=== PATIENT | female | born 2000 | race Caucasian/White ===

== ENCOUNTER 2019-11-28 13:00 | Emergency (ER) | payer OTHER | END 2019-11-28 15:00 | disposition home or self-care (01) | LOC: M ED 13:00 | DX: O9A.212 Injury, poisoning and certain other consequences of external causes complicating pregnancy, second trimester (principal); S99.912A Unspecified injury of left ankle, initial encounter; X50.0XXA Overexertion from strenuous movement or load, initial encounter; Y93.K1 Activity, walking an animal; Y92.9 Unspecified place or not applicable; Z3A.20 20 weeks gestation of pregnancy; Z79.899 Other long term (current) drug therapy ==

== ENCOUNTER 2020-04-21 12:37 | Inpatient (IN) | payer OTHER ==
[2020-04-21] VITALS (31 sets, daily range): BP systolic 99–145; BP diastolic 52–87
[~2020-04-21] VITALS: Ht 167.6 cm; Wt 85.0 kg
[2020-04-21] MEDS ORDERED: TUMS500C PO (12:59)
[2020-04-21] MEDS ORDERED: PRENTAB9 PO (12:59)
[2020-04-21] MEDS ORDERED: LR 1,000 ML IV SCH (13:48)
[2020-04-21] MEDS ORDERED: LACTATED RINGER'S 1000 ML IV STA (13:48)
[2020-04-21] MEDS ORDERED: OXYTOCIN DRIP 30 UNITS in IV 1 EA IV SCH ×2 (14:00→20:24)
--- NOTE | 2020-04-21 14:16 | HPEPDOC ---
Obstetrical History & Physical General Date of Admission Apr 21, 2020 at 12:37 History of Present Illness 20 yo G1@ 40w2D who is admitted for induction of labor at full term. she reports reg movements, denies painfull contractions, VB, LOF. she has no concerns. 1. Anemia 2.Constipation 3. excessive weight gain in #45lb Information Provided By: Patient Age: 19 Care Care: Good Care Dating Final EDC: Apr 19, 2020 Final EDC for Daily Update: Apr 19, 2020 Final EDC by: LMP LMP: Jul 14, 2019 1st Trimester Date: May 07, 2019 EGA at Admission: 40 (40+2) Antepartum Course Diagnos(e)s 1. Anemia 2. Constipation Height (inches): 66 Pre- weight (lbs.): 140 Admission Weight (lbs.): 185 Change in Weight (lbs.): 45 Past Medical History Past Obstetrical History : Past Obstetrical History: Primgravida [employer] History: No pertinent history Past Medical History Medical History Denies Surgical History: Denies/None Family History Significant Family History: No pertinent family hx Social History Marital Status: Family situation: Spouse/partner home * Smoker: non-smoker Alcohol: Denies Drugs: denies Abuse Violence Screening Have you been hit/kicked/slapp: No Have you been sexually assault: No Imunizations Tdap status: current Influenza Status: needs Allergies Coded Allergies: No Known Allergies (Unverified , 04/21/20) Medications Scheduled No.137/Iron/Folic Acd ( Vitamin Tablet) 1 Each Tablet, 1 TAB PO DAILY Miscellaneous Medications Calcium Carbonate (Tums) 200 Mg Tab.chew, 500 MG PO Physical Examination Physical Examination GENERAL: Alert and oriented times three. BREAST: . ABDOMEN: Gravid and non-tender to touch. FETUS: Is vertex (VTX) by sterile vaginal examination (SVE) HEART RATE: Regular rate and rhythm. LUNGS: Clear to auscultation (CTA). EXTREMITIES: No edema. No clonus. SVE: 3/50/-2, C[place] PLACED 80/80, EFW 3500g Laboratory Data 24H LABS Laboratory Tests 2 04/21/20 13:35: Serology Scanned Report Hepatitis B Testing Urine Culture: No Growth Pertinent Laboratoy Data Blood Type: O+ RBC Antibody Screen: Negative HIV: Negative Hepatitis B: Negative Hepatitis C: Unknown Rapid Plasma Reagin: Nonreactive Rubella: Immune Varicella: Immune Chlamydia/Gonorrhea: Negative Group B Streptococcus: Negative Quad Screen Test: Negative Cystic Fibrosis: Negative Anatomy Ultrasound Ultrasound Date: Jan 27, 2020 Placenta Location: Posterior Normal Anatomy: Yes Steroid Therapy Steroid Therapy: No Vaginal Examination Dilation: 3 cm Effacement: 50% Station: -2 Cervical Consistency: Medium Cervical Position: Posterior Presentation: Cephalic presentation Assessment Heart Rate (FHR): 150 Variability: Moderate Accelerations: Positive Decelerations: None Tocometer Contractions: No Assessment/Plan Assessment 20 yo G1@ 40w2D who is admitted for induction of labor at full term. she reports reg movements, denies painfull contractions, VB, LOF. she has no concerns. GBS neg, RH pos ( Opos). EFW 3500g. 1. Anemia 2.Constipation 3. excessive weight gain in #45lb Plan Admit and orient. [employer]oples[employer] Hr Developer and consent. Diet: clear Group B Streptococcus (GBS) negative. Labs and intravenous (IV) per unit protocol. Counseled on Pitocin and induction of labor (IOL). Lactated Ringers (LR): Bolus 1000 mL, then at 125 mL/hr. Anticipate [normal spontaneous delivery . C-S as appropriate. NEIL GARCÍA MD Apr 21, 2020 14:16
[2020-04-21 14:40] LABS: HEMATOCRIT 38.5 % (36.0-47.0); HEMOGLOBIN 12.6 g/dl (12.0-15.5); MEAN CORPUSCULAR HEMOGLOBIN 28.9 pg (27.0-33.0); MEAN CORPUSCULAR HGB CONC 32.7 g/dl (32.0-36.5); MEAN CORPUSCULAR VOLUME 88.3 fl (80.0-96.0); PLATELET COUNT, AUTOMATED 265 10^3/uL (150-450); RED BLOOD COUNT 4.36 10^6/uL (4.00-5.40); WHITE BLOOD COUNT 10.6 10^3/uL (4.0-10.0)
[2020-04-21] MEDS ORDERED: FENTANYL 2MCG/ML ROPIVACAINE 0.2% IN 0.9% NACL 100ML IVBAG As Ordered ONE (15:39)
[2020-04-21] MEDS ORDERED: ONDANSETRON 4MG/2ML VIAL IV PRN (17:30)
[2020-04-21] MEDS ORDERED: REFRIGERATOR IV KEYS XX PRN (17:30)
[2020-04-21] MEDS ORDERED: ePHEDrine SULFATE 25 MG/5 ML(5MG/ML) SYRINGE IV PRN (17:30)
[2020-04-21] MEDS ORDERED: ACETAMINOPHEN TAB 650MG DOSE (2X325MG) PO PRN (17:30)
[2020-04-21] MEDS ORDERED: diphenhydrAMINE 50MG/ML VIAL (J1200) IV PRN (17:30)
[2020-04-21] MEDS ORDERED: FENTANYL/ROPIVACAINE/NACL BAG 100 ML EPIDURAL SCH (17:30)
[2020-04-21] MEDS ORDERED: NALOXONE INJ 0.4MG/1ML VIAL (J2310 PER 1MG) IV PRN (17:30)
[2020-04-21] MEDS ORDERED: LACTATED RINGER'S 1000 ML IV PRN (17:30)
[2020-04-21] MEDS ORDERED: EPIDURAL COMMENT XX SCH (17:30)
[2020-04-21] MEDS ORDERED: EPIDURAL/PCA KEYS XX PRN (17:30)
--- NOTE | 2020-04-21 18:41 | IPNPDOC ---
Obstetrical Progress Note Date of Service Apr 21, 2020 Subjective To room for assessment. patient has epidural in place and she is feeling some vaginal pressure. FHT: 130, mod liz,+accels, -decels---cat I tracing SVE: /-1, MIRZA REMOVED, AROM with clear fluids [place]: 3-07/24 pit @10 A/P Latent labor. cat I tracing. continue pitocin per L&D protocol. Anticipate Objective Vital Signs Date Time Temp Pulse Resp B/P (MAP) Pulse Ox O2 Delivery O2 Flow Rate FiO2 04/21/20 17:04 84 118/73 (88) 04/21/20 15:44 98.8 04/21/20 12:51 16 NEIL GARCÍA MD Apr 21, 2020 18:28
[2020-04-21 20:30] LABS: CORD GAS ABE V -9.5; CORD GAS HCO3 V 20.5 MEQ/L; CORD GAS O2 SAT V 60.6 %; CORD GAS PCO2 V 59.4 mmHg; CORD GAS PH V 7.156 UNITS; CORD GAS PO2 V 29.6 mmHg; CORD GAS SBC V 16.3 MEQ/L; CORD GAS TCO2 V 22.3 MEQ/L
[2020-04-21] MEDS ORDERED: BENZOCAINE 20% HEMORRHOIDAL OINTMENT 28GM TUBE TOP PRN (20:30)
[2020-04-21] MEDS ORDERED: MOM 30ML SUSPENSION UDC PO PRN (20:30)
[2020-04-21] MEDS ORDERED: ANUSOL HC CREAM 30GM TOP PRN (20:30)
[2020-04-21] MEDS ORDERED: DOCUSATE SODIUM 100MG CAPSULE PO PRN (20:30)
--- NOTE | 2020-04-21 20:37 | DNPDOC ---
[facility] Delivery Note Delivery Note DATE OF DELIVERY: 04/21/2020 PREDELIVERY DIAGNOSIS: 40-1/7 weeks' gestation and labor. POST DELIVERY DIAGNOSIS: Delivered. PROCEDURE: Spontaneous vaginal delivery GLOBAL VP CREATIVE + CONTENT MARKETING: Dr.Diane García ANESTHESIA: epidural ESTIMATED BLOOD LOSS: 100 mL. FINDINGS: 7 pound 10 ounce( 3450g) male , Score 7/8, nuchal cord times 2. DELIVERY SUMMARY: Patient is a 20 year-old 1 now para 1 who was admitted to labor and delivery for Induction of labor. Patient progressed to C/C/+2 and with good maternal effort delivered a viable . The infants head delivered OA. The head was allowed to spontaneously restitute KEVIN. loose nuchal cord x2, noted and delivered through. Right anterior shoulder delivered with gentle downward traction followed by posterior shoulder and corpus without difficulty. Normal 3-vessel cord clamped x 2 and cut by FOB after 1 min of delayed cord clamping. Spontaneous cry noted. placed on maternal abdomen for [id number]. Cord blood obtained. Placenta delivered spontaneously and inspection of the placenta demonstrated that it was intact. The cord insertion appeared normal. The uterus was cleared of all clots and debris. Fundal massage until firm.30 units of Pitocin administered per protocol and the patient required no additional uterotonics. Inspection of cervix, perineum, and vaginal wall revealed small periurethral abrasion and a hymenal ring disruption, both of which repaired with 3-0 vicryl. good hemostasis obtained. Repeat uterine examination noted uterine tone to be adequate and firm. Mom and infant stayed in L&D in hemodynamic stable condition upon my departure. NEIL GARCÍA MD Apr 21, 2020 20:37
[2020-04-22 06:00] VITALS: BP 105/54
--- NOTE | 2020-04-22 06:39 | IPNPDOC ---
Progress Note Date of Service: Apr 22, 2020 Day#: 1 Progress Note SUBJECT: Roxie is a 20-year-old 1 now Para 1 status post uncomplicated spontaneous vaginal delivery at 40-1/7 weeks of a 7 pound 10 ounce( 3450g) male infant, Score 7/8, nuchal cord times 2, with post va ginal laceration and repair, doing well day # 1. She has been ambulating, voiding spontaneously without issue and tolerating regular diet. Breast feeding without issue. Reports lochia isclike a normal period. Patient is ambulating well. [Reports some cramping with . Denies any pain. Voiding and stooling without difficulty]. OBJECTIVE: VITAL SIGNS: Within normal limits, afebrile. Alert and oriented times three. normal work of breathing. Heart rate: Regular rate and rhythm Abdomen: Fundus firm at U-2. Soft, NTTP. ASSESSMENT: Roxie is a 20-year-old 1 now Para 1 status post uncomplicated spontaneous vaginal delivery at 40-1/7 weeks of a 7 pound 10 ounce( 3450g) male , Score 7/8, nuchal cord times 2, with post vaginal laceration and repair, doing well day # 1. Vitals within normal limits, afebrile, hemodynamically stable with no evidence of infection. PLAN: 1. Discharge to home tomorrow 2. Tylenol and Motrin for pain. 3. Encourage breast feeding and ambulation. 4. mIREN IUD for contraception 5. Routine PP visit in 6 weeks in clinic. 6. Discussed return precautions at length. VS, I&O, 24H, Derek Vital Signs/I&O Vital Signs Date Time Temp Pulse Resp B/P (MAP) Pulse Ox O2 Delivery O2 Flow Rate FiO2 04/21/20 21:45 98.3 75 16 131/70 (90) 04/21/20 21:08 Room Air I&O- Last 24 Hours up to 6 AM 04/22/20 06:00 Intake Total 1000 ml Output Total 1100 ml Balance -100 ml Laboratory Data 24H LABS Laboratory Tests 2 04/21/20 13:35: Serology Scanned Report Hepatitis B Testing 04/21/20 13:48: Nucleated Red Blood Cells % (auto) 0.0, Syphilis Serology NONREACTIVE, Hepatitis B Surface Antigen NEGATIVEL 1/6/21 20:10: Cord Venous Blood pH 7.156, Cord Venous Blood PCO2 59.4, Cord Venous Blood PO2 29.6, Cord Venous Blood HCO3 20.5, Cord Venous Blood Total CO2 22.3, Cord Venous Base Excess (Actual) -9.5, Cord Venous Base Excess (Standard) 16.3, Cord Venous Blood Oxygen Saturation 60.6 CBC/BMP Laboratory Tests 04/21/20 13:48 NEIL GARCÍA MD Apr 22, 2020 06:39
[2020-04-22] MEDS: ACETAMINOPHEN 500 MG TAB PO PRN ×2 (07:59→16:31)
[2020-04-22] MEDS: PRENATAL VITAMINS CHEWABLE TABLET PO SCH (07:59)
[2020-04-22 18:00] VITALS: BP 132/66
[2020-04-22] MEDS: IBUPROFEN 800 MG TAB PO PRN (20:23)
[2020-04-23 06:00] VITALS: BP 118/58
[2020-04-23] MEDS ORDERED: ACET-683 PO (08:06)
[2020-04-23] MEDS ORDERED: IBUP80TA PO (08:06)
--- NOTE | 2020-04-23 08:08 | DS.PDOC ---
Discharge Summary General Date of Admission Apr 21, 2020 at 12:37 Date of Discharge Apr 23, 2020 Discharge Summary HOSPITAL COURSE: Ms. Rosas is a 20 yo G1 now P1 who underwent an uncomplicated on 21Apr2020 after being admitted for an IOL for social reasons. Her course has been unremarkable. On her day of discharge she met all appropriate discharge criteria. She was ambulating, voiding, tolerating a regular diet, and had minimal lochia. DISCHARGE MEDICATIONS: Please see below. ALLERGIES: Please see below. PHYSICAL EXAMINATION ON DISCHARGE: VITAL SIGNS: Please see below. GENERAL: AAOX3, NAD, pleasant and conversant ABDOMINAL EXAMINATION: Fundus firm at U-2. No fundal tenderness EXTREMITIES: No edema PSYCHIATRIC EXAMINATION: Affect appropriate LABORATORY DATA: Please see below. ACTIVITY: Pelvic rest for 6 weeks DIET: Regular diet DISCHARGE PLAN: Discharge home DISPOSITION: Discharge home on 23Apr2020. DISCHARGE INSTRUCTIONS: 1. Pelvic rest for 6 weeks ITEMS TO FOLLOWUP ON ON OUTPATIENT: 1. appointment in 6-8 weeks DISCHARGE CONDITION: Stable. TIME SPENT ON DISCHARGE: Greater than 20 minutes. Vital Signs/I&Os Vital Signs Date Time Temp Pulse Resp B/P (MAP) Pulse Ox O2 Delivery O2 Flow Rate FiO2 04/22/20 18:00 98.8 78 17 132/66 (88) 98 Room Air Discharge Medications Scheduled PRN Acetaminophen (Acetaminophen) 500 Mg Tablet, 1,000 MG PO Q6HP PRN for PAIN LEVEL 6-10 Ibuprofen (Ibuprofen) 800 Mg Tablet, 800 MG PO Q8HP PRN for PAIN LEVEL 6-10 Allergies Coded Allergies: No Known Allergies (Unverified , 04/21/20) MARLA MEZA DO Apr 23, 2020 08:08
[2020-04-23] MEDS: IBUPROFEN 800 MG TAB PO PRN (09:48)
[2020-04-23] MEDS: PRENATAL VITAMINS CHEWABLE TABLET PO SCH (09:48)
--- NOTE | 2020-04-24 12:15 | IPN ---
PROGRESS NOTE DATE: 04/22/2020 This patient and requested circumcision of her male infant. After discussing risks and benefits of circumcision, the medical and the nonmedical indications, the penile block and aftercare; expressed understanding of penile block, aftercare, and bleeding. Signed the consent form. All questions were answered, 20 minute discussion. We await the clearance by the rug underlay machine operator.
== END 2020-04-23 13:25 | disposition home or self-care (01) | DRG 807 ==
LOC: M LDI 12:37 → M OBS 21:40
PROVIDERS: ADMIT Obstetrics & Gynecology; ATTEND Obstetrics & Gynecology
PROC: 10E0XZZ Delivery of Products of Conception, External Approach (ICD-10-PCS; principal; 2020-04-21)
PROC: 0HQ9XZZ Repair Perineum Skin, External Approach (ICD-10-PCS; 2020-04-21)
PROC: 3E033VJ Introduction of Other Hormone into Peripheral Vein, Percutaneous Approach (ICD-10-PCS; 2020-04-21)
DX: O99.02 Anemia complicating childbirth (principal); Z37.0 Single live birth; D64.9 Anemia, unspecified; Z3A.40 40 weeks gestation of pregnancy; O48.0 Post-term pregnancy; O69.81X0 Labor and delivery complicated by cord around neck, without compression, not applicable or unspecified; O70.0 First degree perineal laceration during delivery